=== PATIENT | female | born 1955 | race African-American/Black ===

== ENCOUNTER 2017-05-18 09:18 | Emergency (ER) | payer MEDICARE ==
[~2017-05-18] VITALS: Ht 162.6 cm; Wt 75.0 kg
[~2017-05-18 09:18] MED LIST: ALEVE220 M1 PO; ASPIRIN EC81 MG PO; BENZTROPINE2 MG PO; BUSPAR5 MG PO; CELEXA20 MG PO; CLOTRIMAZOLE13 EX; COLACE100 MG PO; HALOPERIDOL5 MG PO; HYDROCHLOROT12.5 M1 PO; METHOCARBAM500 MG PO; NASONEX50 MCG/AC NAB; NEXIUM40 M1 OR; NORVASC PO; PRILOSEC20 MG OR; SIMVASTATIN10 MG PO; SIMVASTATIN40 MG PO; TENORMIN25 MG PO; UNKNOWN B/P MED; VOLTAREN - GENE75 MG PO; XANAX0.25 MG PO; ZOFRAN4 MG/TAB PO; ZYRTEC10 MG PO
[2017-05-18 10:27] LABS: MYOGLOBIN 31 ng/mL (0 - 62)
[2017-05-18 10:58] LABS: URINE BILIRUBIN - DIPSTICK NEGATIVE (NEGATIVE); URINE BLOOD DIPSTICK NEGATIVE (NEGATIVE); URINE CLARITY CLEAR; URINE COLOR YELLOW; URINE GLUCOSE - DIPSTICK NEGATIVE (NEGATIVE); URINE KETONE NEGATIVE (NEGATIVE); URINE LEUK ESTERASE NEGATIVE (NEGATIVE); URINE NITRITE - DIPSTICK NEGATIVE (Negative); URINE PROTEIN - DIPSTICK NEGATIVE (NEG-TRACE); URINE SPECIFIC GRAVITY 1.015; URINE UROBILINOGEN - DIPSTICK 0.2 E.U./dL (0.2)
[2017-05-18 10:59] LABS: BARBITURATES NEGATIVE (NEGATIVE); COCAINE NEGATIVE (NEGATIVE); METHADONE NEGATIVE (NEGATIVE); OXCYCODONE NEGATIVE (NEGATIVE); TETRAHYDROCANNABIONOL NEGATIVE (NEGATIVE); TRICYLIC ANTIDEPRESSANTS NEGATIVE (NEGATIVE)
[2017-05-18 11:10] LABS: AMYLASE 106 u/l (30-110); LIPASE 102 u/l (23-300)
[2017-05-18] MEDS ORDERED: PREVACID30 M3 PO (11:15)
[2017-05-18 11:18] VITALS: BP 134/76
[2017-05-18] MEDS ORDERED: PRILOSEC20 MG/CAP PO (12:24)
[2017-05-18] MEDS ORDERED: AMLODIPINE BESYL5 MG PO (12:24)
[2017-05-18] MEDS ORDERED: KLONOPIN0.5 MG PO (12:25)
[2017-05-18] MEDS ORDERED: LATANOPROST0.005 % OU (12:26)
== END 2017-05-18 11:26 | disposition home or self-care (01) ==
LOC: ED 09:18
PROVIDERS: Emergency Medicine
DX: R00.2 Palpitations (principal); F41.9 Anxiety disorder, unspecified; K29.70 Gastritis, unspecified, without bleeding; I10 Essential (primary) hypertension; F32.9 Major depressive disorder, single episode, unspecified